=== PATIENT | female | born 1980 | race African-American/Black ===

== ENCOUNTER 2016-07-26 10:52 | Emergency (ER) | payer MEDICARE, MEDICAID ==
[~2016-07-26] VITALS: Ht 167.6 cm; Wt 126.0 kg
[~2016-07-26 10:52] MED LIST: AMLO-512 PO; FURO40 PO; LAMO25 PO
[2016-07-26] MEDS ORDERED: PERCT10 PO (11:07)
[2016-07-26] MEDS ORDERED: LURA40 PO (11:07)
[2016-07-26] MEDS ORDERED: IBUP-2070 PO (11:07)
[2016-07-26] MEDS ORDERED: SERT50TA12 PO (11:07)
[2016-07-26] MEDS ORDERED: BACL10TA PO (11:07)
[2016-07-26] MEDS ORDERED: LOSA25TA21 PO (11:07)
[2016-07-26] MEDS ORDERED: TraMADol HCL 50 MG TABLET PO ONE (13:00)
[2016-07-26] MEDS ORDERED: KETOROLAC TROMETHAMINE 60 MG/2 ML VIAL IM ONE (13:15)
[2016-07-26 13:41] VITALS: BP 154/98
== END 2016-07-26 13:43 | disposition home or self-care (01) ==
LOC: EMS 10:53
DX: M79.605 Pain in left leg (principal); F32.9 Major depressive disorder, single episode, unspecified; I50.9 Heart failure, unspecified; J45.909 Unspecified asthma, uncomplicated; Z88.1 Allergy status to other antibiotic agents; Z88.6 Allergy status to analgesic agent
CPT/HCPCS: 93971; 96372; 99284; J1885

== ENCOUNTER 2017-01-17 00:04 | Emergency (ER) | payer MEDICARE, MEDICAID ==
[~2017-01-17] VITALS: Ht 172.7 cm; Wt 122.0 kg
[~2017-01-17 00:04] MED LIST changes: +BACL10TA PO; +IBUP-2070 PO; -LAMO25 PO; +LOSA25TA21 PO; +LURA40 PO; +PERCT10 PO; +SERT50TA12 PO
[2017-01-17] MEDS ORDERED: LAMO25 PO (00:15)
[2017-01-17 00:39] LABS: BASOPHILS # (AUTO) 0.23 K/uL (0.00-0.20); BASOPHILS % (AUTO) 2.2 % (0.0-2.0); EOSINOPHILS # (AUTO) 0.12 K/uL (0.00-0.70); EOSINOPHILS % (AUTO) 1.13 % (1.0-6.0); HEMATOCRIT 32.5 % (36-46); HEMOGLOBIN 10.5 g/dL (12.0-16.0); LYMPHOCYTES # (AUTO) 2.8 K/uL (1.0-4.8); LYMPHOCYTES % (AUTO) 26.9 % (22.0-44.0); MEAN CORPUSCULAR HEMOGLOBIN 26.7 pg (26.0-34.0); MEAN CORPUSCULAR HGB CONC 32.4 G/dL (31.0-37.0); MEAN CORPUSCULAR VOLUME 83 fL (80-100); MONOCYTES # (AUTO) 0.7 K/uL (0.1-1.0); MONOCYTES % (AUTO) 6.4 % (2.0-9.0); NEUTROPHILS # (AUTO) 6.6 K/uL (1.8-7.7); NEUTROPHILS % (AUTO) 63.3 % (40.0-70.0); PLATELET COUNT (AUTO) 324 K/uL (150-450); RED BLOOD CELL COUNT(AUTO) 3.93 MIL/uL (4.00-5.20); RED CELL DISTRIBUTION WIDTH 16.6 % (11.5-14.5); WHITE BLOOD COUNT (AUTO) 10.5 K/uL (4.5-11.0)
[2017-01-17 00:53] LABS: ANION GAP 8 mmol/L (8-16); CALCIUM, TOTAL 8.8 mg/dL (8.8-10.5); CARBON DIOXIDE 29 mmol/L (22-29); CHLORIDE 102 mmol/L (98-107); CREATININE 0.73 mg/dL (0.60-1.30); GLOMERULAR FILTR. RATE CALC > 60 mL/min (>60); POTASSIUM 3.4 mmol/L (3.5-5.1); SODIUM SERUM 139 mmol/L (136-145); UREA NITROGEN, BLOOD 11 mg/dL (7-18)
[2017-01-17 01:00] LABS: ALANINE AMINOTRANSFERASE 16 U/L (12-78); ALBUMIN 3.4 g/dL (3.4-5.0); ASPARTATE AMINOTRANSFERASE 12 U/L (15-37); BILIRUBIN,TOTAL 0.2 mg/dL (0.1-1.0); TOTAL PROTEIN, SERUM 8.1 g/dL (6.4-8.2)
[2017-01-17] MEDS ORDERED: ZOLPIDEM TARTRATE 10 MG TABLET PO PRN (03:45)
[2017-01-17] MEDS ORDERED: LORazepam 2 MG TABLET PO PRN (03:45)
[2017-01-17] MEDS ORDERED: OLANZapine 5 MG RAPDIS TABLET PO PRN (03:45)
[2017-01-17 04:20] LABS: APPEARANCE,URINE CLOUDY (CLEAR); GLUCOSE, URINE (UA) NEGATIVE (NEGATIVE); KETONES,URINE NEGATIVE (NEGATIVE); LEUKOCYTE ESTERASE ,URINE SMALL (NEGATIVE); OCCULT BLOOD,URINE NEGATIVE (NEGATIVE); PROTEIN,URINE TRACE (NEGATIVE)
[2017-01-17 04:27] LABS: ADD UA MICROSCOPIC YES
[2017-01-17 04:37] LABS: CHOL/HDL RATIO 2.9 (3.9-5.7); THYROID STIMULATING HORMONE 1.21 uIU/mL (0.36-3.74)
[2017-01-17 04:48] LABS: RBC,URINE 0-2 /HPF (0-2); SQUAMOUS EPITHELIAL CELL,UR Few /LPF (None Seen)
[2017-01-17] MEDS ORDERED: AmLODIPine BESYLATE 5 MG TABLET PO ONE (10:00)
[2017-01-17] MEDS ORDERED: OxyCODONE HCL/ACETAMINOPHEN 5-325 MG TABLET PO ONE (10:00)
[2017-01-17] MEDS ORDERED: LOSARTAN POTASSIUM 50 MG TABLET PO ONE (10:00)
[2017-01-17] MEDS ORDERED: ONDANSETRON HCL 4 MG TABLET PO ONE (10:15)
[2017-01-17 12:07] VITALS: BP 158/111
== END 2017-01-17 13:14 | disposition left against medical advice (07) ==
LOC: EMS 00:07
DX: F31.9 Bipolar disorder, unspecified (principal); I50.9 Heart failure, unspecified; J45.909 Unspecified asthma, uncomplicated; Z88.5 Allergy status to narcotic agent; Z88.1 Allergy status to other antibiotic agents
CPT/HCPCS: 36415; 80053; 80061; 80307; 81001; 84443; 84703; 85025; 99285; G0480; Q0162